=== PATIENT | female | born 2000 | race African-American/Black ===

== ENCOUNTER 2021-01-19 18:31 | Emergency (ER) | payer OTHER ==
[2021-01-19] MEDS ORDERED: Lidocaine 1% PF 5 ML VIAL ONE (19:58)
[2021-01-19] MEDS ORDERED: Bacitracin 1 PK ONE (20:53)
== END 2021-01-19 20:59 | disposition home or self-care (01) ==
LOC: ERS 18:31
DX: S61.210A Laceration without foreign body of right index finger without damage to nail, initial encounter (principal); W22.8XXA Striking against or struck by other objects, initial encounter
CPT/HCPCS: 12001

== ENCOUNTER 2022-04-27 14:48 | Emergency (ER) | payer OTHER | END 2022-04-27 16:14 | disposition home or self-care (01) | LOC: ERS 14:48 | DX: J22 Unspecified acute lower respiratory infection (principal) | CPT/HCPCS: 87081; 87430; 87804; 99283 ==